=== PATIENT | male | born 1970 | race Asian ===

== ENCOUNTER 2017-10-27 03:57 | Emergency (ER) | payer BC ==
[~2017-10-27] VITALS: Ht 180.3 cm; Wt 99.8 kg
[2017-10-27 04:00] VITALS: BP_SYST 172
--- NOTE | 2017-10-27 04:05 | NUR ---
Pt awake alert oriented x 4. Clear speech. Pt stated left shoulder pain. Pt was unable to sleep. pain level of 10/10 at the time. Denied nausea or vomiting at the time. Pt with his at his bedside. Pt stable. terese continue to monitor
--- NOTE | 2017-10-27 04:35 | NUR ---
ER Dr. Gerardo at bedside examining patient.
[2017-10-27] MEDS ORDERED: HYDROmorphone 1 MG INJ. 1 MG/ML AMPUL IM ONE (04:45)
--- NOTE | 2017-10-27 04:56 | NUR ---
Pt was taken for x-ray.
[2017-10-27] MEDS ORDERED: ONDANSETRON 4 MG ODT TAB PO ONE (05:00)
--- NOTE | 2017-10-27 05:15 | NUR ---
Dr. morgan explain x-ray results with pt and pt's
[2017-10-27 05:34] VITALS: BP_SYST 141
--- NOTE | 2017-10-27 05:34 | NUR ---
Patient given written and verbal discharge instructions and verbalizes understanding. ER MD discussed with patient the results and treatment provided. Patient in stable condition. ID arm band removed. Rx of percocet, flexeril, motrin given. Patient educated on pain management and to follow up with PMD. Pain Scale 2/10, pt tolerable pain level. Opportunity for questions provided and answered.
== END 2017-10-27 05:34 | disposition home or self-care (01) ==
LOC: SED 03:57
DX: M54.12 Radiculopathy, cervical region (principal)
CPT/HCPCS: 72072; 96372; 99284; J1170; Q0162